=== PATIENT | female | born 2000 | race Caucasian/White ===

== ENCOUNTER 2019-11-09 19:43 | Emergency (ER) | payer BC ==
[~2019-11-09] VITALS: Ht 167.6 cm; Wt 86.4 kg
[2019-11-09 19:52] VITALS: BP 134/78; TEMP 97.6
[2019-11-09] MEDS ORDERED: PROZAC 20MG20 MG PO (19:54)
[2019-11-09] MEDS ORDERED: VYVANSE40 MG PO (19:54)
[2019-11-09 20:22] LABS: COLLECTION METHOD CLEAN CATCH
[2019-11-09 21:10] LABS: PH 7 (5-8); SQUAMOUS EPITHELIAL None Seen /hpf; URINE APPEARANCE Hazy; URINE BACTERIA Rare /hpf; URINE BILIRUBIN Negative (NEGATIVE); URINE BLOOD 3+ (NEGATIVE); URINE COLOR Amber; URINE GLUCOSE Negative (NEGATIVE); URINE KETONE Negative (NEGATIVE); URINE LEUKOCYTE ESTERASE 3+ (NEGATIVE); URINE NITRATE Negative (NEGATIVE); URINE PROTEIN(semi-quant) 1+ (NEGATIVE); URINE RBC >50 /hpf; URINE UROBILINOGEN Negative (NEGATIVE)
[2019-11-09] MEDS ORDERED: CEFTIN 250250 MG/TAB PO (21:43)
[2019-11-09 22:03] VITALS: PULSE 94
== END 2019-11-09 22:04 | disposition home or self-care (01) ==
LOC: COL.ER 19:43
PROVIDERS: Nurse Practitioner
DX: N39.0 Urinary tract infection, site not specified (principal); Z88.0 Allergy status to penicillin